=== PATIENT | female | born 1985 | race Caucasian/White ===

== ENCOUNTER 2017-01-21 12:41 | Emergency (ER) | payer BC ==
[2017-01-21] MEDS ORDERED: NORMAL SALINE 10 ML SYRINGE FLUSH IVP PRN (12:59)
[2017-01-21 13:29] LABS: BASOPHILS # (AUTO) 0.03 10*3/UL; BASOPHILS % (AUTO) 0.5 % (0-1); EOSINOPHILS # (AUTO) 0.02 10*3/UL; EOSINOPHILS % (AUTO) 0.4 % (0-8); HEMATOCRIT 40.2 % (37.0-47.0); HEMOGLOBIN 13.8 g/dL (12.0-16.0); LYMPHOCYTES # (AUTO) 1.99 10*3/uL; MEAN CORPUSCULAR HEMOGLOBIN 29.4 PG (27-31); MEAN CORPUSCULAR HGB CONC 34.3 g/dL (33-37); MEAN CORPUSCULAR VOLUME 85.5 FL (81-99); MEAN PLATELET VOLUME 9.3 FL (7.4-12.2); MONOCYTES # (AUTO) 0.46 10*3/UL (0.3-0.8); MONOCYTES % (AUTO) 8.3 % (5-15); NEUTROPHILS # (AUTO) 3.01 10*3/UL; NEUTROPHILS % (AUTO) 54.7 % (50-80)
[2017-01-21 13:32] LABS: PLATELET MORPHOLOGY COMMENT NORMAL MORPHOLOGY (NORM); RBC MORPHOLOGY COMMENT NORMAL MORPHOLOGY (NORM); WBC MORPHOLOGY COMMENT NORMAL MORPHOLOGY (NORM)
[2017-01-21 13:35] VITALS: RESP 16
[2017-01-21 13:42] LABS: BLOOD UREA NITROGEN 18 mg/dL (7-22); BUN/CREATININE RATIO 25.71 (6-20); CALCIUM 9.4 mg/dL (8.7-10.7); EST GLOMERULAR FILTRATION > 60 (>60 ml/min/1.73m(2)); SERUM ALBUMIN 4.5 g/dL (3.5-4.8)
[2017-01-21 13:43] LABS: SALICYLATE < 1.0 mg/dl (0-20)
[2017-01-21 14:11] LABS: BILIRUBIN,URINE NEGATIVE (NEG); CLARITY,URINE CLEAR (CLEAR); COLOR,URINE YELLOW; GLUCOSE, URINE (UA) NEGATIVE (NEG); NITRATE,URINE NEGATIVE (NEG); OCCULT BLOOD,URINE NEGATIVE (NEG); PROTEIN,URINE NEGATIVE (NEG); UROBILINOGEN,URINE 0.2 EU/dL (0.2)
[2017-01-21 14:19] LABS: AMPHETAMINE SCREEN NEGATIVE (NEG); CANNABINOID SCREEN,URINE NEGATIVE (NEG); COCAINE SCREEN NEGATIVE (NEG); METHADONE URINE SCREEN NEGATIVE (NEG); METHAMPHETAMINES SCREEN,URINE NEGATIVE (NEG); OPIATE SCREEN,URINE NEGATIVE (NEG); URINE SAMPLE TYPE CLEAN CATCH URINE
--- NOTE | 2017-01-21 14:48 | PDOC ---
Psych/Suicidal/OD HPI - General Chief Complaint: Psychiatric Complaint Stated Complaint: PSYCHIATRIC ISSUES Date Seen by Provider: 01/21/17 Time Seen by Provider: 12:50 Source: POSITIVE: Patient, Police, RN/MD ([employer] for life counselor) Exam Limitations: POSITIVE: No limitations Nurse's Notes Reviewed & Considered: Yes - History of Present Illness Initial Comments: This 31-year-old female is brought into the emergency room in the custody of a precinct police lieutenant. The patient entered a car which is not her own and the precinct police lieutenant reports that the patient started drinking coffee which she found in the vehicle and also began eating a sandwich which was apparently on the front seat of the vehicle. [place] and the beverage did not along to the patient. There was also a container of glue in the car, which the patient took. The precinct police lieutenant reports that the patient told him that she was in the car because "she was following the signs", and the patient did not appear to be tracking normally and would make some inappropriate statements and would offer vague answers frequently. Patient has a history of bipolar disorder/depression and was on lithium, Lamictal and Effexor for these conditions. However, this that he patient states she discontinued all of her psychiatric medications about 6 months ago and states she has been trying to treat her condition with "meditation and diet and exercise". Patient denies any suicidal ideation. She denies any pain or physical symptoms whatsoever. She is not combative. Timing: REPORTS: Gradual Duration: Unknown Severity: Moderate Quality: REPORTS: Other (Patient denies any pain anywhere) Intent: REPORTS: Prior Suicidal Thoughts. DENIES: Suicide Context: REPORTS: Other (Patient discontinued her psychotropic medications of Lamictal, lithium and Effexor.) Associated Symptoms: REPORTS: Hallucinating (" I was just following the signs". Patient will not elaborate further as to what these "signs"were.) Arrived By: REPORTS: Police Similar Symptoms Previously: Yes Recent Care Received: REPORTS: Denies Any Prior Injuries Related to Current Complaint?: No - Patient Home Medications Home Medications: Home Medications Medication Instructions Recorded Confirmed Clonazepam 1 tab PO DAILY tab 05/30/16 07/20/16 - Patient Allergies Allergies/Adverse Reactions: Allergies Allergy/AdvReac Type Severity Reaction Status Date / Time sulfamethoxazole Allergy Intermediate Hives Verified 01/21/17 12:53 [From Bactrim] trimethoprim [From Bactrim] Allergy Intermediate Hives Verified 01/21/17 12:53 Past Medical History - heen HEENT History: Denies History Cardiovascular History: Denies History Respiratory History: Denies History Gastrointestinal History: Denies History Genitourinary History: Denies History Endocrine History: Denies History Musculoskeletal History: Arthritis Prosthesis or Implant: No Neurological History: Denies History Blood Disorders: Denies History Psychiatric History: Depression, Bi Polar Disorder, Anxiety Disorders, PTSD History of Sexually Transmitted Diseases: No Female Reproductive History: Denies History LMP: HAS NEXPLANON IMPLANT Cancer History: Denies History In Past Year Been Physically Harmed or Verbally Threatened: No History of MDRO: No History of Other Communicable Diseases: No Tobacco Use: Current Every Day Smoker Alcohol Use: Occasionally Substance Use Type: None, Marijuana Previous Surgical History: No Significant Family History: Cancer Past Medical History Reviewed: Reviewed - No Changes ROS - Limitations ROS Limitations: No Limitations Constitution: REPORTS: Denies Symptoms Cardiovascular: REPORTS: Denies Cardiac Symptoms Respiratory: REPORTS: Denies Resp Symptoms Neurological: REPORTS: Denies Neuro Symptoms Gastrointestinal: REPORTS: Denies GI Symptoms Endocrine: REPORTS: Denies Symptoms Musculoskeletal: REPORTS: Denies MS Symptoms Genitourinary: REPORTS: Denies Symptoms Eyes: REPORTS: Denies Symptoms ENT: REPORTS: Denies Symptoms Skin: REPORTS: Denies Skin Symptoms Lympathic: REPORTS: Denies Lympathic Symptoms Immunologic: POSITIVE: Denies Symptoms Psychiatric: POSITIVE: Denies Psych Symptoms Psych/Suicidal/OD Exam - General Appearance General Appearance: POSITIVE: No Acute Distress, Alert, Other (Patient is thin and in no distress. During the interview she is noted to be sitting in a mike position and meditating. She is verbalizing, but I cannot make out what she is saying. While not meditating the patient appears alert and cooperative but does give brother vague and elusive answers.) - HEENT HEENT: POSITIVE: Head Inspection Nml, Eyes Inspection Nml, Ears Inspection Nml, Nose Inspection Nml, Oral/Dental Inspect. Nml, Pharynx Inspect. Nml, PERRL, EOMI - Pupil Size Pupil Size: 4 mm: Left (PERRLA) - Neurological/Psychological Mental Status: NEGATIVE: Appropriate Affect (Somewhat flippant, unconcerned attitude) Orientation: POSITIVE: Oriented x3 Cranial Nerves: POSITIVE: rehab consultant Intact as Tested Sensory/Motor: POSITIVE: Normal Motor Response, Normal Sensory Response, Normal Reflexes, Normal Gait When asked, pt ADMITS continued consideration of suicide:: No - Neck/Back Neck/Back: POSITIVE: Normal Inspection, Supple - Respiratory Respiratory: POSITIVE: No Respiratory Distress, Breath Sounds Normal - CVS Cardiovascular: POSITIVE: Regular Rate and Rhythm, Heart Sounds Normal, Equal Pulses, Strong Pulses Peripheral Pulses: Radial (R): 2+, Radial (L): 2+ - Abdomen Abdomen: Soft: (All Quadrants), Normal Bowel Sounds: (All Quadrants), Denies Tenderness: (All Quadrants), No Splenomegaly: (All Quadrants), No Hepatomegaly: (All Quadrants), No Guarding: (All Quadrants), No Rebound: (All Quadrants), No Palpable Pulse: (All Quadrants), No Palpabale Mass: (All Quadrants), No Distention: (All Quadrants), No Rigidity: (All Quadrants) - Skin Skin: POSITIVE: Intact, Normal For Race, Warm, Dry, No Rash - Extremities Extremity: Non-Tender: (All Extremities), Normal ROM: (All Extremities), Normal Inspection: (All Extremities) Psych/Suicidal/OD Progress - Results Reviewed by me Lab Results Reviewed: Yes Lab Results:: Laboratory Results 01/21/17 Range/Units 12:59 WBC 5.51 (4.8-10.8) 10^3/uL RBC 4.70 (4.20-5.40) 10^6/uL Hgb 13.8 (12.0-16.0) g/dL Hct 40.2 (37.0-47.0) % MCV 85.5 (81-99) FL MCH 29.4 (27-31) PG MCHC 34.3 (33-37) g/dL RDW Std Deviation 40.7 (39-50) fL RDW Coeff of Jason 13.2 (11.5-14.5) % Plt Count 266 (140-350) 10*3/uL MPV 9.3 (7.4-12.2) FL Immature Gran % (Auto) 0 (0-5) % Neut % (Auto) 54.7 (50-80) % Lymph % (Auto) 36.1 (10-50) % [place] % (Auto) 8.3 (5-15) % Eos % (Auto) 0.4 (0-8) % Baso % (Auto) 0.5 (0-1) % Immature Gran # (Auto) 0 10*3/UL Neut # (Auto) 3.01 10*3/UL Lymph # (Auto) 1.99 10*3/uL [place] # (Auto) 0.46 (0.3-0.8) 10*3/UL Eos # (Auto) 0.02 10*3/UL Baso # (Auto) 0.03 10*3/UL WBC Morphology Comment Normal morphology (NORM) Plt Morphology Comment Normal morphology (NORM) RBC Morph Comment Normal morphology (NORM) Sodium 141 (135-145) meq/L Potassium 3.7 L (3.8-5.2) meq/L Chloride 105 (98-112) meq/L Carbon Dioxide 23 (23-33) meq/L Anion Gap 13 (5-20) BUN 18 (7-22) mg/dL Creatinine 0.7 (0.50-1.20) mg/dL Estimated GFR > 60 (>60 ml/min/1.73m(2)) BUN/Creatinine Ratio 25.71 H (6-20) Glucose 130 H (78-110) mg/dL Calculated Osmolality 295.0 H (267-292) mOsm/kg Calcium 9.4 (8.7-10.7) mg/dL Total Bilirubin 0.7 (0.3-1.2) mg/dL AST 27 (8-39) IU/L ALT 30 (9-52) IU/L Alkaline Phosphatase 44 (38-126) IU/L Total Protein 7.3 (6.1-8.0) g/dL Albumin 4.5 (3.5-4.8) g/dL Globulin 2.8 (2.50-4.10) g/dL Albumin/Globulin Ratio 1.60 (1.3-2.0) mg/g TSH 0.593 (0.2700-4.2000) uIU/mL Ur Collection Type Clean catch urine Urine Color Yellow Urine Clarity Clear (CLEAR) Urine pH 6.0 (5.0-8.5) Ur Specific [place] 1.010 (1.005-1.030) U Specif Grav (Refrac) 1.010 Urine Protein Negative (NEG) mg/dl Urine Glucose (UA) Negative (NEG) mg/dL Urine Ketones Trace (NEG) Urine Occult Blood Negative (NEG) Urine Nitrate Negative (NEG) Urine Bilirubin Negative (NEG) Urine Urobilinogen 0.2 (0.2) EU/dL Ur Leukocyte Esterase Negative (NEG) Ur Culture Indicated? Culture not set Salicylates < 1.0 (0-20) mg/dl Urine Opiates Screen Negative (NEG) Ur Buprenorphine Negative (NEG) Ur Oxycodone Screen Negative (NEG) Urine Methadone Screen Negative (NEG) Ur Propoxyphene Screen Negative (NEG) Acetaminophen < 10.0 (0-30) ug/mL Barbiturate Screen Negative (NEG) U Tricyclic Antidepress Negative (NEG) Phencyclidine Screen Negative (NEG) Amphetamines Screen Negative (NEG) U Methamphetamines Scrn Negative (NEG) Benzodiazepines Screen Negative (NEG) Cocaine Screen Negative (NEG) U Marijuana (THC) Screen Negative (NEG) Serum Alcohol < 10 (0-10) mg/dL - Patient's Progress Pain Medication Addressed: POSITIVE: Not Applicable School/Work Release Addressed: POSITIVE: Not Applicable Re-Examine Time: 14:20 Re-Examine Comment: Counselor from [employer] evaluated patient in the emergency room. Patient is known to them and has a history of psychosis. Counselor has discussed case with [facility], and patient is transferred to that facility for further evaluation and treatment. Status: POSITIVE: Unchanged, Re-Examined - Medical Clearance for Psych Referral Toxic Causes: NEGATIVE: PCP, Amphetamines, Hallucinogens, Acetaminophen, ASA, ETOH, Other Toxic Ingestion, Other Infectious Causes: NEGATIVE: Meningitis, Encephalitis, Sepsis, Other Metabolic Causes: NEGATIVE: Thyroid, Hypoglycemia, Drug Withdrawal, Hypoxemia, Electrolytes, Other Cleared medically for psychiatric referral: Yes - Consult Consult (If Yes, Name of Consulting MD & Time Called): Yes (Vyclone, [id number]) Consulting MD will see pt:: POSITIVE: In ED, Recommended Transfer Counseled: POSITIVE: Patient, RE: Lab Results, RE: DX, RE: Need for F/U Patient Care Time - Estimated PCT Patient Care Time (In Minutes): 35 Vital Signs - Recent Vital Signs Vital Signs: Vital Signs (Last 8 hours) Temp Pulse Resp BP Pulse Ox 01/21/17 12:44 98 F 104 H 16 137/83 99 - VS Reviewed Vital Signs Reviewed: Yes Discharge Clinical Impression: Psychotic disorder Discharge Disposition: Transferred to Psychiatric Facility Condition: Fair Date Decision to Transfer to Another Facility: 01/21/17 Time Decision to Transfer to Another Facility: 14:10
[2017-01-21 17:03] VITALS: TEMP 97.8
== END 2017-01-21 17:19 ==
LOC: ER 12:41
DX: F23 Brief psychotic disorder (principal); R44.1 Visual hallucinations
CPT/HCPCS: 80053; 80305; 80320; 80329; 81003; 84443; 85025; 90791; 99284